=== PATIENT | male | born 1960 | race Caucasian/White ===

== ENCOUNTER 2016-06-28 18:43 | Inpatient (IN) | payer OTHER ==
--- NOTE | ~2016-06-28 | CN ---
Consultation Report [facility] [address] [place]. [address] NAME: DEEJAY BOWDEN : 56 STATUS : ADM IN [facility]#: [id number] AGE: 56 ADM/REG DATE : 06/28/16 MR#: [id number] REPORT SERV DATE: 06/29/16 DICTATED BY: ARTURO MARCUS DATE: 06/29/16 REPORT STATUS : Draft TRANSCRIBED BY: MODL DATE: 06/29/16 SURGICAL CONSULTATION DATE OF CONSULTATION: 06/29/2016 REASON FOR CONSULTATION: Decubitus ulcer. HISTORY OF PRESENT ILLNESS: This 56-year-old gentleman was admitted to the hospital with nausea and vomiting. 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 and continue assisted Health, anemia followed by Dr. Harris and Dr. Jones, obstructive sleep apnea, bipolar disorder with anxiety, and a history of ileal conduit for multiple recurrent urinary tract infections in the past. He had a hernia repair placed in the past and has an upper midline incision that is extruding some permanent sutures that is chronic. There is no open wound of the abdomen. The patient has right sacral and right ischial pressure ulcers with biofilm without necrotic slough. There is no redness, swelling, drainage, or fluctuance. There is no clinical infection. PAST MEDICAL HISTORY: As above with chronic pain, nicotine dependence. PAST SURGICAL HISTORY: 1. Cystectomy with ileal conduit. 2. Back surgery with Solis rods. 3. Hernia repair. 4. IVC filter placement. 5. Brain hematoma evacuation. ALLERGIES: PENICILLIN, SULFA. MEDICATIONS: Please see hospital chart. SOCIAL HISTORY: The patient smokes. He drinks beer rarely. He is and disabled. 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 FAMILY HISTORY: Positive for bipolar disease, corner artery disease, prostate cancer. REVIEW OF SYSTEMS: The patient has been anorexic. He has had nausea and vomiting. He has no abdominal pain, bright red blood per rectum, melena, or change in the caliber of his stools. He has no fever or chills at this time. PHYSICAL EXAMINATION: GENERAL: Cachectic male, in no apparent distress. He has some temporal wasting. Consultation Report [facility] [address] [place]. [address] NAME: DEEJAY BOWDEN : 56 STATUS : ADM IN [facility]#: [id number] AGE: 56 ADM/REG DATE : 06/28/16 MR#: [id number] REPORT SERV DATE: 06/29/16 DICTATED BY: ARTURO MARCUS DATE: 06/29/16 REPORT STATUS : Draft TRANSCRIBED BY: MODL DATE: 06/29/16 NECK: Supple. No adenopathy. CARDIOVASCULAR: Regular rate and rhythm without murmur. RESPIRATORY: Clear to auscultation. ABDOMEN: Soft, nondistended. The patient has an upper midline incision with extruding nonabsorbable sutures. He has urostomy in the right lower quadrant. There is no peritoneal signs or guarding. BACK: The patient has a stage III decubitus ulcer that is approximately 3 cm in the largest dimension. There is no periwound erythema. There is some biofilm without significant slough. There is no tracking. He has a healing monty right ischial pressure ulcer with no redness, swelling, or drainage. LABS: Please see hospital chart. ASSESSMENT: 1. Stage III sacral and right ischial ulcers that are chronic without clinical evidence of infection. 2. Multiple medical problems as above. PLAN: I would recommend continued dressing care as ordered with offloading bed and optimization of nutrition and medical therapy as dictated. From the exam today, the patient is okay from a wound standpoint to return to continued nursing home health and to his regular scheduled visits in the [facility]. There is no acute surgical debridement necessary at this time. We will debride the patient at the bedside if he remains in the hospital. /SAM Arturo Marcus M.D. / [id number] CC: Elza Yañez M.D.
--- NOTE | ~2016-06-28 | HP ---
History And Physical [place] [id number] [facility] [place]. [address] NAME: DEEJAY BOWDEN : 56 STATUS : ADM IN [facility]#: [id number] AGE: 56 ADM/REG DATE : 06/28/16 MR#: [id number] REPORT SERV DATE: 06/29/16 DICTATED BY: GRAHAM TAN DATE: 06/28/16 REPORT STATUS : Draft TRANSCRIBED BY: MODL DATE: 06/28/16 DATE OF ADMISSION: 06/28/2016 CHIEF COMPLAINT: A 56-year-old male with T12 paraplegia, now presenting with new onset sacral decubitus ulcer and severe nausea and vomiting. HISTORY OF PRESENT ILLNESS: The patient's history was obtained through careful interview with the patient and his , Farhana, coupled with review of [facility] and [facility] medical records. The patient fell from a ladder in 1997 and now has chronic T12 paraplegia and disability. Earlier in 2016 (the date seem uncertain ?), the patient was at [facility] and apparently wanted to leave against medical advice (as best as I can tell). He tried to get up on his own and collapsed hitting his head against the side of the wall and then injuring his backside. Ever since then, he has had an "apple sized" decubitus and has had difficulty healing. He has been seen by home health care and wound care, but has had difficulty with healing. But then, just on day of admission, he developed extreme nausea and vomiting and also describes increasing abdominal distention. He denies any abdominal pain. He has chronic back pain, aching quality in his upper back, mostly 8/10 severity. According to , he became weak and confused today along with his illness. No shortness of breath. No cough. No chest pain. No fevers or chills. REVIEW OF SYSTEMS: Otherwise, a 14-point review of systems was obtained and was negative. PAST MEDICAL HISTORY: 1. Fall from a ladder in 1997 with T12 paraplegia. 2. Anemia, seen by Dr. Harris and Dr. 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 3. Chronic kidney disease stage 3. Baseline creatinine of 1.3 to 1.6. 4. Bipolar disorder with anxiety. 5. Hiatal hernia. 6. Obstructive sleep apnea. 7. Sacral decubitus over this last week or so. 8. Hepatitis C with a history of interferon treatment. 9. COPD. 10.Abdominal wall cellulitis. 11.Bilateral foot ulcers. 12.Ventral hernia. History And Physical [address] [address] NAME: DEEJAY BOWDEN : 56 STATUS : ADM IN PAT#: [id number] AGE: 56 ADM/REG DATE : 06/28/16 MR#: [id number] REPORT SERV DATE: 06/29/16 DICTATED BY: GRAHAM TAN DATE: 06/28/16 REPORT STATUS : Draft TRANSCRIBED BY: MODMeryl DATE: 06/28/16 13.Hypotension with baseline systolic blood pressure in the 90s. 14.Small bowel obstruction. 15.Chronic pain management. 16.Pseudomonas. 17.DVT with IVC filter placement. 18.Pneumonia. PAST SURGICAL HISTORY: 1. Cystectomy with ileal conduit. This was after he had a bladder rupture. 2. Back surgery. 3. Hernia repair. 4. IVC filter placement. 5. Brain hematoma surgery. ALLERGIES: PENICILLIN AND SULFA. SOCIAL HISTORY: He smokes cigarettes. Rare beer. He is . Disabled. 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 He has two children. He is seen by home health care. FAMILY HISTORY: Mother with bipolar disorder and pacemaker. Father with prostate cancer and polio. CURRENT MEDICATIONS: Include DuoNeb nebulizers, Klonopin 2 mg p.o. four times a day, Diflucan, Flovent, Megace 400 mg p.o. t.i.d., morphine 30 mg five times a day, Zyprexa 5 mg p.o. daily, Seroquel 25 mg p.o. daily, sodium bicarbonate 650 mg p.o. b.i.d., Spiriva. PHYSICAL EXAMINATION: VITAL SIGNS: Temperature 98.0, pulse 98, blood pressure 84/47, respiratory rate 20, O2 saturation 93% on room air. GENERAL: A chronically ill-appearing male, no significant distress at this time. HEENT: Pupils equal, round, and reactive to light. No conjunctival pallor. No scleral icterus. Nares are patent. Oropharynx is clear of obstruction. Very dry mucous membranes. NECK: Trachea midline. No thyromegaly. LYMPH: No cervical lymphadenopathy. No supraclavicular lymphadenopathy. No inguinal lymphadenopathy. RESPIRATORY: Clear to auscultation at bases. No wheezes, rales, or rhonchi. Normal respiratory effort. CARDIOVASCULAR: Regular rate and rhythm. No murmurs, rubs, or gallops. No current extremity edema is appreciated. ABDOMEN: Quite distended by exam, with tympanic resonance percussed throughout. Nontender throughout. There is no splenomegaly. DERMATOLOGICAL: Warm and dry extremities. No pallor. No cyanosis. I did evaluate the patient's sacral decubitus. It appears to be a stage 3 depth, about 2 to 3 cm in greatest diameter with some purulent drainage that was cultured at the bedside, minimal erythema. No heat. No tenderness. No fluctuance. No tracking as best as I can tell. PSYCHIATRIC: Normal affect. He has good mood. Alert and oriented x3. History And Physical [address] [address] NAME: DEEJAY BOWDEN : 56 STATUS : ADM IN [facility]#: [id number] AGE: 56 ADM/REG DATE : 06/28/16 MR#: [id number] REPORT SERV DATE: 06/29/16 DICTATED BY: GRAHAM TAN DATE: 06/28/16 REPORT STATUS : Draft TRANSCRIBED BY: SAM DATE: 06/28/16 LABORATORY DATA: White blood count 13, hemoglobin 10, hematocrit 31, platelets 211. Sodium 146, potassium 4.5, chloride 111, bicarb 21, BUN 35, creatinine of 0.9, glucose 115. Albumin 2.4, alkaline phosphatase 243. INR 1.1. Urinalysis negative for infection. STUDIES: 1. Chest x-ray by my own evaluation shows increasing right-sided patchy diffuse disease compared to November 2015. 2. EKG by my own evaluation shows sinus rhythm. 3. CT scan of the brain without contrast shows no acute intracranial process. ASSESSMENT AND PLAN: 1. Sacral decubitus ulcer. It appears to be stage 3 by my evaluation. Obtain a wound culture. Consult wound care team and Dr. Hernández, surgeon. Check ESR and CRP and start empiric IV, vancomycin IV cefepime. History of Pseudomonas. The patient has systemic inflammatory response syndrome criteria. 2. Acute kidney injury. Place on IV fluids. 3. T12 paraplegia. 4. Hypotension. The baseline systolic blood pressure in the 90s. Place on IV fluids and IV albumin. 5. Anemia. History of blood and iron infusions. KPL/MODL Graham Tan M.D. / [id number] CC: Elza Yañez M.D.
--- NOTE | ~2016-06-28 | DS ---
Discharge Summary [facility] [address] [facility] [place]. [address] NAME: DEEJAY BOWDEN : 56 STATUS : DIS IN PAT#: [id number] AGE: 56 ADM/REG DATE : 06/28/16 MR#: [id number] REPORT SERV DATE: 07/02/16 DICTATED BY: ALLAN COYLE DATE: 06/29/16 REPORT STATUS : Draft TRANSCRIBED BY: MODL DATE: 06/29/16 ADMISSION DATE: 06/28/2016 DISCHARGE DATE: 06/29/2016 DISCHARGE DIAGNOSES: 1. Acute on chronic anemia, most likely due to nutritional deficiencies. 2. Stage III sacral decubitus. 3. Hypotension, now resolved. 4. Chronic pain syndrome. 5. T12 paraplegia. 6. Chronic obstructive pulmonary disease. 7. Chronic kidney disease stage 3 with a baseline creatinine of about 1.6. 8. Bipolar disorder with anxiety disorder. 9. Hiatal hernia. 10.Obstructive sleep apnea. 11.Hepatitis C with a history of interferon treatment in the past. 12.Ventral hernia. 13.Deep vein thrombosis with IVC filter. CONSULTANTS DURING THIS HOSPITALIZATION: Arturo Gonzalez M.D., of General Surgery. INVASIVE PROCEDURES DONE DURING THIS HOSPITALIZATION: None. BRIEF HISTORY OF PRESENT ILLNESS: The patient is a 56-year-old white male with T12 paraplegia came in with complaints of sacral ulcer, nausea, and vomiting with some abdominal distention. So he was admitted. For detailed history and physical exam, please see note dictated by Dr. Azael Bradford on 06/28/2016. HOSPITAL COURSE: After being admitted to the hospital, this patient was thought to have sacral ulcer infection. So he was started on vancomycin and cefepime and he was noted to have hypotension. He was given IV fluids with his acute kidney injury. Within 24 hours, this patient had an unusual and rapid recovery. His kidney function returned back to baseline at about 1.61. Dr. Gonzalez saw the patient in consultation and did not think that his ulcer needed any further intervention and antibiotics were discontinued. This patient was found to have significant anemia with hemoglobin down to about 6.8. So we transfused him with 2 units of PRBCs prior to his discharge today. This patient adamantly refused to stay in the hospital for another night for further observation. However, because he is otherwise in stable condition and has already outpatient followup with Dr. Og for IV iron infusion therapy for his anemia, I have discussed that with the and the patient at the bedside that he will follow up with them and then can get IV iron in the outpatient setting. At this time, I do not see need for any oral antibiotics as well. DISCHARGE DISPOSITION: Home. DISCHARGE ACTIVITY: As tolerated using his equipments. Discharge Summary [address] [place]. [address] NAME: DEEJAY BOWDEN : 56 STATUS : DIS IN PAT#: [id number] AGE: 56 ADM/REG DATE : 06/28/16 MR#: [id number] REPORT SERV DATE: 07/02/16 DICTATED BY: ALLAN COYLE DATE: 06/29/16 REPORT STATUS : Draft TRANSCRIBED BY: SAM DATE: 06/29/16 DISCHARGE DIET: Low-sodium diet. DISCHARGE MEDICATIONS: Morphine IR 30 mg 5 times daily, Megace 40 mg three times daily, Zyprexa 5 mg once at bedtime, Seroquel 25 mg once at bedtime, sodium bicarb 1 tablet twice daily, Klonopin 2 mg four times daily for anxiety, DuoNebs one neb 4 times daily p.r.n., Spiriva one capsule inhalation twice daily, Ventolin HFA two puffs every four hours p.r.n. for wheezing, Flovent HFA 220 mcg two puffs twice daily, Nystop powder to both groin areas for fungal dermatitis. DISCHARGE FOLLOWUP: Will be with Dr. Nimesh Og for iron infusion therapy with the [facility] for further treatment of his sacral decubitus as well as by home health and with Dr. You Crowley in two to three weeks or when scheduled by patient. More than 30 minutes spent planning this patient's discharge, reconciling medications, writing prescriptions, and discussing hospital care with the patient and the at the bedside as well as documenting this discharge. ALTAF/SAM Allan Coyle M.D. / [id number] CC: Allan Coyle M.D. You Crowley M.D. Nimesh Og IV, M.D. [facility]
[2016-06-28 16:05] LABS: HEMATOCRIT 31.9 % (40.0-51.0); HEMOGLOBIN 10.3 g/dL (13.6-17.8); MEAN CORPUS HGB CONC 32.3 g/dL (32.0-36.0); MEAN CORPUSCULAR HEMOGLOB 29.2 pg (26.0-34.0); MEAN CORPUSCULAR VOLUME 90.4 fL (80-100); MEAN PLATELET VOLUME 10.9 fL (9.2-13.0); PLATELET COUNT 211 10/3/uL (150-400); RBC DISTRIBUTION WIDTH 14.9 % (12.0-16.0); RED CELL COUNT 3.53 10/6/uL (4.7-6.1)
[2016-06-28 16:10] LABS: ER CBC TAT 0 Hrs 10 Mins; MANUAL DIFF YES %; WHITE BLOOD CELLS 13.4 10/3/uL (4.5-10.5)
[2016-06-28 16:18] LABS: INTERNATIONAL NORMAL RATI 1.1 UNITS (-); PARTIAL THROMBO TIME 28.5 SEC (22.5-37.2); PROTIME (NOT ORD) 14.4 SEC (12.0-14.5)
[2016-06-28 16:20] LABS: CALCIUM, SERUM 8.1 MG/DL (8.5-10.4); CHLORIDE, SERUM 111 MMOL/L (96-112); CREATININE 1.91 MG/DL (0.70-1.30); GFR AFRICAN AMERICAN 44 ML/MIN (>=60); GFR NON AFRICAN AMERICAN 38 ML/MIN (>=60); POTASSIUM, SERUM 4.5 MMOL/L (3.5-5.3); SGOT(AST) 13 U/L (5-40); SGPT(ALT) 12 U/L (5-65); TOTAL BILIRUBIN 0.3 MG/DL (0-1.2); TOTAL PROTEIN 6.5 G/DL (6.0-8.5)
[2016-06-28 16:21] LABS: BUN (BLOOD UREA NITROGEN) 35 MG/DL (6-23); CO2 (CARBON DIOXIDE) 21 MMOL/L (24-34); GLUCOSE, SERUM 115 MG/DL (60-99); SODIUM, SERUM 146 MMOL/L (135-148)
[2016-06-28 16:22] LABS: A/G RATIO 0.6 (0.7-1.9); ALBUMIN 2.4 G/DL (3.5-5.0); ALKALINE PHOSPHATASE 243 U/L (45-117); GLOBULIN 4.1 G/DL (2.5-4.1)
[2016-06-28 16:34] LABS: BAND NEUTROPHILS 3 %; ER DIFF TAT 0 Hrs 34 Mins; LYMPHOCYTES 3 %; MONOCYTES 7 %; MONOCYTES ABSOLUTE (CALC) 0.94 10/3/uL (0.21-1.20); NEUTROPHILS ABSOLUTE (CALC) 12.06 10/3/uL (2.02-8.40); PLATELET ESTIMATE ADQ (ADEQUATE); SEGMENTED NEUTROPHIL (0) 87 %; TOTAL NUCLEATED CELLS 100
[2016-06-28 16:36] LABS: POLYCHROMASIA 1+ (2-5/OIF) (0-1/OIF)
[2016-06-28 16:37] LABS: TEARDROP SHAPED RBCS OCC (0-2/OIF)
[~2016-06-28 18:43] MED LIST: BISR PR; CLARIT10 PO; COMBIVENT INH; COMBIVENT RESPIM4 GM INH; DSS PO; KLONO1 PO; KLONO2 PO; KLOR-CON 1010 MEQ PO; L40 PO; LAMICTAL25 PO; LITHIUM CARB600 MG PO; MSIMMREL PO; PRILO PO; PRILOSEC40 MG PO; PROAIR HFA INH; SILVADENE1 % TOP; TRICOR48 PO; [UNRECOGNIZED DRUG - REMARK] PO
[2016-06-28 20:23] LABS: ASCORBIC ACID (UR NOT ORDER) NEG (NEG); BILIRUBIN, URINE NEGATIVE (NEG); ER URINALYSIS TAT 0 Hrs 09 Mins; KETONE, URINE NEGATIVE (NEG); LEUKOCYTE ESTERASE(NOT OR MOD (NEG); NITRITE (URINE) NEG (NEG); WBC (NOT ORDERED) (RFLEX) 2 (0-5)
[2016-06-28] MEDS ORDERED: KLONO2 PO (21:01)
[2016-06-28] MEDS ORDERED: FLUCON150 PO (21:01)
[2016-06-28] MEDS ORDERED: MEG40 PO (21:02)
[2016-06-28] MEDS ORDERED: DUONEB INH (21:02)
[2016-06-28] MEDS ORDERED: SEROQUEL25 PO (21:03)
[2016-06-28] MEDS ORDERED: SPIRIVA RESPIMAT INH (21:03)
[2016-06-28] MEDS ORDERED: ZYP5 PO (21:04)
[2016-06-28] MEDS ORDERED: MSIMMREL PO (21:04)
[2016-06-28] MEDS ORDERED: VENTOLIN HFA INH (21:05)
[2016-06-28] MEDS ORDERED: FLOVENT220 INH (21:05)
[2016-06-28] MEDS ORDERED: SODBICAR10 PO (21:06)
[2016-06-29 06:06] LABS: PARTIAL THROMBO TIME 37.3 SEC (22.5-37.2)
[2016-06-29 06:07] LABS: INTERNATIONAL NORMAL RATI 1.3 UNITS (-); PROTIME (NOT ORD) 15.8 SEC (12.0-14.5)
[2016-06-29 07:07] LABS: BASOPHILS 0.1 %; BASOPHILS ABSOLUTE 0.01 10/3/uL (0.0-0.16); EOSINOPHILS 0.3 %; EOSINOPHILS ABSOLUTE 0.02 10/3/uL (0.0-0.53); IMMATURE GRANULOCYTES 0.1 %; IMMATURE GRANULOCYTES ABSOLUTE 0.01 10/3/uL (0.0-0.11); LYMPHOCYTES 11.6 %; LYMPHOCYTES ABSOLUTE 0.81 10/3/uL (0.67-4.30); MEAN CORPUSCULAR HEMOGLOB 29.4 pg (26.0-34.0); MEAN CORPUSCULAR VOLUME 89.2 fL (80-100); MEAN PLATELET VOLUME 9.9 fL (9.2-13.0); MONOCYTES 4.2 %; MONOCYTES ABSOLUTE 0.29 10/3/uL (0.21-1.20); NEUTROPHILS 83.7 %; NEUTROPHILS ABSOLUTE 5.82 10/3/uL (2.02-8.40)
[2016-06-29 07:24] LABS: BUN (BLOOD UREA NITROGEN) 32 MG/DL (6-23); C-REACTIVE PROTEIN 86.8 MG/L (<8.0); CALCIUM, SERUM 8.2 MG/DL (8.5-10.4); CHLORIDE, SERUM 118 MMOL/L (96-112); CO2 (CARBON DIOXIDE) 17 MMOL/L (24-34); CREATININE 1.61 MG/DL (0.70-1.30); GFR AFRICAN AMERICAN 54 ML/MIN (>=60); GFR NON AFRICAN AMERICAN 46 ML/MIN (>=60); POTASSIUM, SERUM 4.7 MMOL/L (3.5-5.3); SGOT(AST) 5 U/L (5-40); SGPT(ALT) 7 U/L (5-65); SODIUM, SERUM 146 MMOL/L (135-148); TOTAL BILIRUBIN 0.3 MG/DL (0-1.2); TOTAL PROTEIN 5.9 G/DL (6.0-8.5)
[2016-06-29 07:25] LABS: ALBUMIN 2.9 G/DL (3.5-5.0); ALKALINE PHOSPHATASE 135 U/L (45-117); GLUCOSE, SERUM 84 MG/DL (60-99)
[2016-06-29 07:29] LABS: HEMATOCRIT 20.6 % (40.0-51.0); HEMOGLOBIN 6.8 g/dL (13.6-17.8); PLATELET COUNT 133 10/3/uL (150-400); RED CELL COUNT 2.31 10/6/uL (4.7-6.1)
[2016-06-29 07:30] LABS: MANUAL DIFF NO %
[2016-06-29 09:59] LABS: SED RATE 58 MM/HR (0-15)
[2016-06-29 18:03] LABS: HEMATOCRIT 30.9 % (40.0-51.0); HEMOGLOBIN 10.4 g/dL (13.6-17.8)
[2016-06-29] MEDS ORDERED: NYSTATPOW TOP (19:08)
== END 2016-06-29 19:43 | disposition home health service (06) | DRG 592 ==
LOC: ER 18:43 → 4SO 21:38
PROVIDERS: Emergency Medicine; Internal Medicine; Nurse Practitioner
PROC: 30233N1 Transfusion of Nonautologous Red Blood Cells into Peripheral Vein, Percutaneous Approach (ICD-10-PCS; principal; 2016-06-29)
DX: L89.153 Pressure ulcer of sacral region, stage 3 (principal); G93.40 Encephalopathy, unspecified; I50.23 Acute on chronic systolic (congestive) heart failure; R64 Cachexia; N17.9 Acute kidney failure, unspecified; G82.20 Paraplegia, unspecified; I42.0 Dilated cardiomyopathy; N18.3 Chronic kidney disease, stage 3 (moderate); I95.9 Hypotension, unspecified; F31.89 Other bipolar disorder; I48.2 Chronic atrial fibrillation; E86.0 Dehydration; S24.104S Unspecified injury at T11-T12 level of thoracic spinal cord, sequela; R51 Headache; J44.9 Chronic obstructive pulmonary disease, unspecified; F17.210 Nicotine dependence, cigarettes, uncomplicated; I73.9 Peripheral vascular disease, unspecified; F10.10 Alcohol abuse, uncomplicated; M10.9 Gout, unspecified; Z86.718 Personal history of other venous thrombosis and embolism; Z98.890 Other specified postprocedural states; Z88.0 Allergy status to penicillin; Z88.5 Allergy status to narcotic agent; Z79.01 Long term (current) use of anticoagulants; Z91.19 Patient's noncompliance with other medical treatment and regimen; W11.XXXS Fall on and from ladder, sequela; K44.9 Diaphragmatic hernia without obstruction or gangrene; G47.33 Obstructive sleep apnea (adult) (pediatric); G89.29 Other chronic pain; Z93.6 Other artificial openings of urinary tract status; Z88.2 Allergy status to sulfonamides; Z90.6 Acquired absence of other parts of urinary tract; Z79.891 Long term (current) use of opiate analgesic; Z86.19 Personal history of other infectious and parasitic diseases; Z87.440 Personal history of urinary (tract) infections; Z98.1 Arthrodesis status; Z68.21 Body mass index [BMI] 21.0-21.9, adult; D53.8 Other specified nutritional anemias
CPT/HCPCS: 36415; 70450; 71010; 74000; 80053; 81001; 83735; 84134; 84443; 85014; 85018; 85025; 85610; 85652; 85730; 86140; 86850; 86900; 86901; 86920; 87070; 87077; 87086; 87186; 87205; 93005; 94640; 96372; 96374; 99285; A9270-GY; J0692; J2800; J3370; P9016; P9047